=== PATIENT | female | born 1995 | race Caucasian/White ===

== ENCOUNTER 2017-12-10 08:51 | Emergency (ER) | payer OTHER, SELFPAY ==
[2017-12-10 08:52] VITALS: BP 156/93; PULSE 87; RESP 16; TEMP 36.6; O2SAT 96; BMI 34.3
--- NOTE | 2017-12-10 09:07 | ED.DCSUM_ITS ---
- ER Visit Summary Date of Service: 12/10/17 Chief Complaint: Right arm pain History of Present Illness: The patient is a 22 F who works at [employer]. Patient states yesterday she was putting items in a bent over her head. She felt a pain of pain with repetitive motion that quickly resolved. She woke this morning with worse pain. She points to the distal aspect of the right upper arm. She is right-hand dominant. She denies paresthesias or weakness. Physical Examination: Vital signs are significant for blood pressure 156/93, otherwise unremarkable. Patient sitting upright in a bedside chair no acute distress. Right upper extremity examination is significant for tenderness over the medial biceps tendon distally of the right upper extremity. She has full range of motion with normal strength and sensation. Strong distal pulses are noted. Test Results: [] Emergency Department Course and Treatment: No imaging is needed at this time. Patient be treated with anti-inflammatory given work restrictions. Treatment Plan: [] Disposition: Discharge Impression: Biceps tendinitis right upper extremity This note was generated with [employer] dictation software. It may contain incorrect words, spelling, and punctuation that were not noted in review of the chart prior to signing ED Disposition - Plan for ED Patient: Disposition: Home or Assisted Living Chief Complaint: Upper Extremity Injury Instructions: ED Strain Muscle Ext Prescriptions: Naproxen [Naprosyn] 500 mg PO BID PRN #20 tablet [facility]errals: [facility] - 3-5 Days
[2017-12-10] MEDS: Naproxen 500 MG Tablet PO (09:14)
== END 2017-12-10 09:35 | disposition home or self-care (01) ==
PROVIDERS: Emergency Provider Emergency Medicine
DX: M75.21 Bicipital tendinitis, right shoulder (principal)
CPT/HCPCS: 99283